=== PATIENT | male | born 1975 | race Two or more races ===

== ENCOUNTER → 2019-06-08 | Outpatient (CLI) | payer OTHER ==
[2019-04-19 11:00] VITALS: BP 127/86
[~2019-06-08] MED LIST: AMOX1TAB61 PO; GLIM1TAB PO; METF500T11 PO; OXYC-325 PO; TAMS0.4C97 PO
--- NOTE | 2019-06-08 16:08 | KCIC ---
MRI Lumbar Spine without contrast History: Lumbar and sacral arthritis, low back pain, shooting pain, skin sensitivity since January Technique: Multiplanar, multi sequential noncontrast MR imaging was performed of the lumbar spine. Comparison: April 18, 2019 Findings: Lumbar vertebral body stature is unchanged, similar superior endplate concavity and Schmorl's node of S1. There is negligible anterior spondylolisthesis at L4-5 as seen previously. Intervertebral disc spaces are overall preserved. Conus terminates near T12. There is no significant marrow edema. There is again focus of increased T2 and T1 signal of the anterior L5 vertebral body about 1.3 cm. L1-L2: This level was not included on the axial images, spinal canal and neural foramina overall adequate. There is a focus of increased T2 and STIR signal of the left superior L1 vertebral body as seen previously about 0.7 cm, very faintly hyperintense on the T1 sequence. L2-L3: Spinal canal and neural foramina are adequate. There is mild buckling of the ligamentum flavum and facet degenerative change. There is small anterior annular tear as seen previously. L3-L4: There is again negligible disc osteophyte complex. There is minimal buckling of the ligamentum flavum. Spinal canal and neural foramina are overall adequate. L4-L5: There is again disc osteophyte complex and bulge/broad protrusion slightly indenting the ventral thecal sac. There is similar degree of mild to moderate narrowing the far left lateral recess with contact of the descending left L5 nerve root, minimal narrowing of the far right lateral recess. There is mild buckling of the ligamentum flavum. Neural foramina are overall adequate. L5-S1: There is very minimal disc osteophyte complex in the inferior distal right neural foramen and extraforaminal region, neural foramina not significantly narrowed. Spinal canal is adequate. Impression: 1. There is again narrowing of the far lateral recesses greater on the left at L4-5 with contact of the descending left L5 nerve root. There is no significant lumbar neural foramina compromise. 2. There is a similar focus of marrow signal abnormality of the left L1 vertebral body, small hemangioma considered most likely. There is a more typical appearing hemangioma anteriorly of L5. Electronically signed by: Simone Young MD (06/08/2019 4:05 PM) [id number]
== END | disposition home or self-care (01) ==
LOC: KCIC MRI 15:16
PROVIDERS: ATTEND Family Medicine
DX: M48.061 Spinal stenosis, lumbar region without neurogenic claudication (principal); M25.78 Osteophyte, vertebrae
CPT/HCPCS: 72148

== ENCOUNTER 2019-06-21 18:04 | Emergency (ER) | payer OTHER ==
[~2019-06-21] VITALS: Ht 177.8 cm; Wt 80.4 kg
[2019-06-21 20:00] VITALS: BP 148/79
[2019-06-21] MEDS ORDERED: fentaNYL PF VIAL 100 MCG/2 ML VIAL IM STA (20:06)
--- NOTE | 2019-06-21 20:20 | PHYS DOC ---
Past Medical History Past Medical History: Diabetes-Type II Additional Past Medical Histor: ENLARGED PROSTATE (JENNY TITUS APRN) Past Surgical History: No Surgical History (JENNY TITUS APRN) Alcohol Use: Rarely (JENNY TITUS APRN) Attending Signature I have participated in the care of this patient and I have reviewed and agree with all pertinent clinical information above including history, exam, and recommendations. (MAMADOU AGUILLON MD) Adult General Chief Complaint Chief Complaint: BACK PAIN - NO INJURY HPI HPI Patient is a 44 year old male who presents with back pain has been ongoing since December. Patient states his back pains been worsening is having sciatica pain going down both legs. The patient has an appointment with Dr. Reeves but has not yet seen him. The patient also has been seen his primary care doctor Dr. Keen regarding this complaint. He is tried Flexeril, gabapentin, and has been using Percocet. States he is out of the Percocet. Complete ROS were reviewed and found to be within normal limits, except as documented in the HPI (JENNY TITUS APRN) Current Medications Current Medications Current Medications Medications (Trade) Dose Ordered Sig/Chana Start Time Stop Time Status Last Admin Dose Admin Fentanyl Citrate (Fentanyl 2ml Vial) 75 mcg 1X STAT 06/21/19 20:06 06/21/19 20:07 DC 06/21/19 20:16 75 MCG (MAMADOU AGUILLON MD) Allergies Allergies Allergies Coded Allergies Type Severity Reaction Last Updated Verified No Known Drug Allergies 04/13/19 No (MAMADOU AGUILLON MD) Physical Exam Physical Exam Constitutional: Well developed, well nourished, no acute distress, non-toxic appearance. [] HENT: Normocephalic, atraumatic, bilateral external ears normal, oropharynx moist, no oral exudates, nose normal. [] Eyes: PERRLA, EOMI, conjunctiva normal, no discharge. [] Neck: Normal range of motion, no tenderness, supple, no stridor. [] Cardiovascular:Heart rate regular rhythm, no murmur [] Lungs & Thorax: Bilateral breath sounds clear to auscultation [] Skin: Warm, dry, no erythema, no rash. [] Back: C, T, and L tenderness, left sided muscle tenderness. Extremities: No tenderness, no cyanosis, no clubbing, ROM intact, no edema. [] Neurologic: Alert and oriented X 3, normal motor function, normal sensory funct ion, no focal deficits noted. [] Psychologic: Affect normal, judgement normal, mood normal. [] (JENNY TITUS APRN) Current Patient Data Vital Signs Vital Signs Date Time Temp Pulse Resp B/P (MAP) Pulse Ox O2 Delivery O2 Flow Rate FiO2 06/21/19 20:16 98 06/21/19 20:00 101 18 148/79 (102) Room Air 06/21/19 18:53 98.2 98.2 (MAMADOU AGUILLON MD) EKG EKG [] (JENNY TITUS APRN) Radiology/Procedures Radiology/Procedures [] (JENNY TITUS APRN) Course & Med Decision Making Course & Med Decision Making Pertinent Labs and Imaging studies reviewed. (See chart for details) Discussed with patient that he needs to see Neurosurgery and follow up with [facility] doctor. Because his primary care doctor has been giving pain medication. I don't feel comfortable giving a script for it. He needs to see his primary care provider. (JENNY TITUS APRN) Dragon Disclaimer Dragon Disclaimer This electronic medical record was generated, in whole or in part, using a voice recognition dictation system. (JENNY TITUS APRN) Departure Departure Impression: Primary Impression: Back pain Disposition: HOME, SELF-CARE Condition: STABLE Referrals: JED KEEN MD (PCP) Patient Instructions: Back Pain, Adult Additional Instructions: Thank you for visiting [facility]. We appreciate you trusting us with your care. If any additional problems come up don't hesitate to return to visit us. Please follow up with your primary care provider so they can plan additional care if needed and know about the problem that you had. If symptoms worsen come back to the Emergency Department. Any concerning symptoms that start such as chest pain, shortness of air, weakness or numbness on one side of the body, running high fevers or any other concerning symptoms return to the ER. Problem Qualifiers Primary Impression: Back pain Back pain location: low back pain Chronicity: acute Back pain laterality: bilateral Sciatica presence: with sciatica Sciatica laterality: bilateral sciatica Qualified Codes: M54.42 - Lumbago with sciatica, left side; M54.41 - Lumbago with sciatica, right side JENNY TITUS APRN Jun 21, 2019 20:20 MAMADOU AGUILLON MD Jun 22, 2019 00:52
== END 2019-06-21 20:33 | disposition home or self-care (01) ==
LOC: ER 18:04
DX: M54.41 Lumbago with sciatica, right side (principal); M54.42 Lumbago with sciatica, left side; E11.9 Type 2 diabetes mellitus without complications; N40.0 Benign prostatic hyperplasia without lower urinary tract symptoms
CPT/HCPCS: 96372; 99283; J3010

== ENCOUNTER → 2019-07-23 | Outpatient (CLI) | payer OTHER ==
--- NOTE | 2019-07-23 17:09 | KCIC ---
MRI Cervical Spine Without Contrast History: Pain, neck pain and left arm weakness progressive since March Technique: Multiplanar, multi sequential noncontrast MR imaging was performed of the cervical spine. Comparison: None Findings: Cervical cord caliber is within normal limits without defined or expansile signal abnormality. Small 6 mm focus of marrow signal change hyperintense on T2 and STIR sequences of the T2 vertebral body is isointense on the T1 sequence. Cervical vertebral body stature and AP alignment are within normal limits. There is mild degenerative disc disease C6-7 and C7-T1, mild disc desiccation at C5-C6. C2-C3: Neural foramina and spinal canal are adequate. C3-C4: Spinal canal and the neural foramina are adequate. C4-C5: There is facet degenerative change greater on the right. Neural foramina and spinal canal are adequate. C5-C6: There is bilateral facet hypertrophic change. Spinal canal and neural foramina are adequate. C6-C7: There is posterior protrusion about 2 to 3 mm AP slightly indenting the ventral thecal sac greater in the right paracentral region. There is buckling of the ligamentum flavum. Central canal is borderline about 10 mm. There is minimal narrowing of the left neural foramen, right neural foramen adequate. C7-T1: There is facet degenerative change bilaterally. Neural foramina and spinal canal are adequate. Impression: 1. There is no significant cervical spinal stenosis, borderline narrowing at C6-7. There is minimal narrowing of the left C6-7 neural foramen. There is mild degenerative disc disease C6-7 and C7-T1. 2. Small focus of marrow signal change of the T2 vertebral body is nonspecific. Small atypical hemangioma is considered more likely than more aggressive marrow replacing lesion (metastatic disease or myeloma), especially no known or suspicion for malignancy. Electronically signed by: Simone Young MD (07/23/2019 5:06 PM) [id number]
== END | disposition home or self-care (01) ==
LOC: KCIC MRI 15:31
PROVIDERS: ATTEND Family Medicine
DX: M47.812 Spondylosis without myelopathy or radiculopathy, cervical region (principal); M50.33 Other cervical disc degeneration, cervicothoracic region; M50.323 Other cervical disc degeneration at C6-C7 level; M50.223 Other cervical disc displacement at C6-C7 level; M48.02 Spinal stenosis, cervical region; M89.38 Hypertrophy of bone, other site
CPT/HCPCS: 72141

== ENCOUNTER → 2019-08-10 | Outpatient (CLI) | payer OTHER ==
[~2019-08-10] MED LIST changes: +HYDR-2769 PO
--- NOTE | 2019-08-10 09:54 | KCIC ---
EXAMINATION: Magnetic resonance imaging (MRI) of the thoracic spine without contrast 08/10/2019 8:45 AM HISTORY: Low back pain with unexplained numbness in the torso and extremities. TECHNIQUE: Multiplanar multi-weighted MRI of the thoracic spine was performed without intravenous contrast. Contrast information: None administered. COMPARISON: None available. FINDINGS: The alignment of the thoracic spine is normal. Vertebral bodies demonstrate normal signal intensity on all sequences. There are no compression fractures. The conus medullaris terminates at the level of T12-L1. The distal spinal cord signal intensity is normal. Mild disc desiccation at all levels of the thoracic spine, sparing T11-T12. There are no annular fissures identified. Limited views of the thorax and abdomen show no soft tissue abnormality. The aorta is normal. T2-T3: There is mild disc bulge. No significant facet arthropathy. No neuroforaminal or spinal canal stenosis. T7-T8: There is a mild circumferential disc bulge. There is mild facet arthropathy. No neuroforaminal or spinal canal stenosis. T8-T9: There is a disc bulge with right central disc protrusion. No significant facet arthropathy. No neuroforaminal or spinal canal stenosis. T9-T10: Mild disc bulge. No neuroforaminal or spinal canal stenosis. IMPRESSION: No significant disc herniation, neuroforaminal or spinal canal stenosis. Electronically signed by: Aliya Gilman MD (08/10/2019 9:51 AM) [id number]
== END | disposition home or self-care (01) ==
LOC: KCIC MRI 08:29
PROVIDERS: ATTEND Family Medicine
DX: M51.24 Other intervertebral disc displacement, thoracic region (principal); M12.88 Other specific arthropathies, not elsewhere classified, other specified site
CPT/HCPCS: 72146

== ENCOUNTER → 2019-08-14 | Outpatient (CLI) | payer OTHER ==
--- NOTE | 2019-08-14 14:49 | PAIN ---
DATE OF SERVICE: 08/14/2019 INITIAL CONSULTATION FOR PAIN CLINIC CHIEF COMPLAINT: Low back and bilateral lower extremity pain. SECONDARY COMPLAINT: Neck and bilateral upper extremity pain. HISTORY OF PRESENT ILLNESS: This is a 44-year-old male who presents with history of pain since 12/2018, not any specific injury or action he is aware of, but is gradually increasing pain, base of the neck, bilateral upper extremities, mostly in the mid low back with radiation to posterior gluteus, posterolateral thigh, lateral anterior thigh, anterior medial thighs, left greater than right, both the upper and lower extremities. The patient reports it is becoming more constant, sharp, described as shooting and stinging into the upper extremities, posterior deltoid, posterior upper arms, into the forearms anteriorly and posteriorly with tingling, numbness in the hand with some weakness of the left hand with lifting items. The patient reports the low back is likewise very tender with radiating pain across the low back and the posterior gluteus, lateral thighs, anterior thighs, especially medial thighs, medial lower legs, left greater than right and into the feet with numbness and tingling as well. The patient describes it as radiating, aching, changes during the day, worse with activity, standing, walking, changing positions, better with sitting or lying down, does awaken him from sleep about 3 times a night. The patient reports it does not affect his bowel or bladder control, but does affect his ability to walk. He is not using any assistive devices. The patient has had therapies in the past and stretching and strengthening exercises, but no formal physical therapy currently. He is still doing some stretching and strengthening exercises on his own as instructed with his primary physician. The patient is taking hydrocodone, both 5 mg and 10 mg, the 10 mg does decrease the pain where the others did not. He is taking gabapentin, which has not been helpful and Flexeril, which helps only mildly. The patient has been taking [id number] Motrin, Advil as well without significant decrease in pain. The patient did have MRI scan both cervical and lumbar spines, lumbar spine showing narrowing of the far lateral recesses greater on the left at L4-L5 with contact to descending left L5 nerve root, cervical spine shows degenerative changes throughout the middle and lower cervical distribution with narrowing at C6-C7, minimal narrowing on the left at C6-C7 and mild degenerative disk disease at C6-C7 and C7-T1. PAST MEDICAL HISTORY: Significant for type 2 diabetes diagnosed in 03/2019, diverticulosis, history of kidney infections, degenerative joint disease in peripheral joints. PAST SURGICAL HISTORY: No previous surgery. CURRENT MEDICATIONS: Include hydrocodone, glimepiride, metformin and tamsulosin. ALLERGIES: The patient has no known drug allergies. FAMILY HISTORY: Significant for diabetes and heart disease. SOCIAL HISTORY: The patient drinks alcohol about 2-3 times a year, very rarely, does not smoke, does not use any illegal, illicit or recreational drugs. He is single, lives locally in [place], [place]. 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 REVIEW OF SYSTEMS: The patient's review of systems is positive for those items mentioned in history of present illness. All systems reviewed and otherwise negative. It is complete, full and well documented on the patient's chart. PHYSICAL EXAMINATION: VITAL SIGNS: The patient's blood pressure is 132/90, pulse 124, respirations 16, temperature 98.1 degrees Fahrenheit, height is 5 feet 10 inches, weight is 180 pounds. GENERAL: The patient is awake, alert, oriented, appropriate, very pleasant demeanor. HEENT: Head shows normocephalic, atraumatic. Extraocular movements are intact and symmetrical. Oral cavity: Mucous membranes moist and pink. Dentition is intact. NECK: Shows anterior throat supple without palpable lymphadenopathy noted. Swallow reflex symmetrical. CHEST: Shows normal on inspection. Breath sounds are clear bilaterally. HEART: Shows S1, S2 clear. No murmurs auscultated. ABDOMEN: Soft, nontender, nondistended. No palpable organomegaly is noted. No rebound or guarding demonstrated. BACK: Shows spine grossly in the midline. Normal appearing thoracic kyphosis and cervical lordotic curvature as well as lumbar lordotic curvature. Cervical paraspinous muscle shows symmetrical on inspection, with palpation some mild tenderness in the inferior aspect of the cervical paraspinous musculature, slightly more on the left than the right, but present bilaterally without significant atrophy, hypertrophy without radiation. The patient does show good rotational motion of cervical spine, both laterally as well as extension and flexion without significant difficulty. The patient's low back shows lumbar paraspinous muscle shows symmetrical with normal lordotic curvature with palpation some moderate tenderness in the middle and lower distribution of paraspinous muscles diffusely bilaterally without radiation, without trigger points. The patient shows no tenderness over the sacrum or sacroiliac regions or the spinous processes. Good rotational motion both laterally greater than 10 degrees right and left as well as extension greater than 10 degrees, forward flexion 45 degrees without significant increase in pain. EXTREMITIES: The patient's extremities show upper extremity deep tendon reflexes 2+ in the biceps and triceps tendons. Motor exam is strong with opticianry teacher strength rated at 5/5 as is biceps and triceps flexion. Peripheral pulses are 2+ radial. No peripheral edema is noted. Lower extremities show deep tendon reflexes at 2+ patellar, 1+ tendo-calcaneus tendons, are symmetrical. Motor exam is approximately 4 on a scale of 5 on the left, 5/5 on the right. Peripheral pulses are 1+ posterior tibia. No peripheral edema is noted. Lower extremities are warm and dry to touch, equal in color and appearance. Straight leg raise noted to be mildly positive on the left at about 35-40 degrees left, right side is negative. This is decreased with knee flexion on the left side. Gaenslen's and Pradeep's maneuvers are negative bilaterally. The patient is able to stand, stand on his toes without significant difficulty. No loss of balance, walks with a normal appearing gait for short distance in the office today, not using any assistive devices to ambulate. SKIN: Shows warm and dry, good turgor. No edema. No sores, rashes or bruising throughout. IMPRESSION: 1. This is a 44-year-old male with approximate 7- to 8-month history of pain, both low back, bilateral lower extremities, left greater than right in a radicular fashion at L4-L5 dermatomal distribution on the left side. 2. Cervical radiculopathy, again worse on the left than the right, but present bilaterally in the C6-C7 dermatomal distribution. 3. Diabetes. 4. History of diverticulosis. PLAN: Options were discussed with the patient including conservative medical managements, physical therapies and interventional techniques as he is doing stretching exercises on his own, doing some stretches from his primary care physician as instructed him to do as well as medication management. He has tried without significant decrease in pain with either of these modalities. He would like to try interventional techniques. We discussed a lumbar epidural steroid injection using description as well as anatomical models and his low back and legs is his primary concern with the neck and upper extremities being secondary. We will preauthorize the patient for lumbar epidural steroid injection. Once approval is obtained, we will have the patient return for lumbar epidural steroid injection, translaminar approach at the L4-L5 level for his clinical left L4-L5 radiculopathy. The patient was given Medrol Dosepak in the meantime. The patient was cautioned as elevated blood sugars with the medication as well as side effects other than the elevated glucose. The patient will return to clinic in approximately 1 week. We will plan on lumbar epidural steroid injection at that time. EUGENIO REAL MD DR: GENEVIEVE/diane JOB#: [id number] / [id number] JED Ornelas MD
== END | disposition home or self-care (01) ==
LOC: PNCL 08:52
PROVIDERS: ATTEND Anesthesiology
DX: M54.5 Low back pain (principal); M79.604 Pain in right leg; M79.605 Pain in left leg; E11.9 Type 2 diabetes mellitus without complications; M19.90 Unspecified osteoarthritis, unspecified site; M54.12 Radiculopathy, cervical region; Z87.19 Personal history of other diseases of the digestive system
CPT/HCPCS: G0463

== ENCOUNTER → 2019-08-27 | Outpatient (CLI) | payer OTHER ==
[~2019-08-27] MED LIST changes: +IOHEXOL 180 MG/ML 10 ML VIAL. ONE; +methylPREDNISolone ACETATE 40 MG/ML VIAL. ONE; +methylPREDNISolone ACETATE 80 MG/ML VIAL. ONE
--- NOTE | 2019-08-27 17:13 | PAIN ---
DATE OF SERVICE: 08/27/2019 PROGRESS NOTE FOR PAIN CLINIC DIAGNOSES: 1. Lumbar radiculopathy with lumbar degenerative disk disease. 2. Cervical radiculopathy with cervical degenerative disk disease. HISTORY OF PRESENT ILLNESS: The patient is a 44-year-old male who returns for followup status post initial evaluation and preauthorization for lumbar epidural steroid injection. The patient has obtained that now and would like to proceed. The patient still reports pain in the low back and into the posterior gluteus, lateral thighs, anterior thighs, more on the left than the right, but present bilaterally as it was previously. The patient reports no new motor or sensory deficits. We did try Medrol Dosepak after his last visit and he reports it helped only very slight amount. The patient reports the pain is now aching, sharp, shooting in the legs, again worse on the left than the right and tingling, radiating, becoming more severe and constant with activity. No new motor or sensory deficits, no new bowel or bladder incontinence or other complaints. The patient rates his pain as a 9 on a scale of 10 at its worst over the past week, 8 on average, 6 at its least and is a 6 today. The patient reports still better with sitting or lying down, but does awaken him from sleep about once at night. PHYSICAL EXAMINATION: VITAL SIGNS: The patient's blood pressure 143/103, pulse 101, respirations 16, temperature 98.5 degrees Fahrenheit, weight is 177 pounds. GENERAL: The patient is awake, alert, oriented, appropriate, very pleasant demeanor. HEENT: Shows normocephalic, atraumatic. Extraocular movements are intact and symmetrical. Oral cavity: Mucous membranes moist and pink. Dentition is intact. NECK: Shows anterior throat supple without palpable lymphadenopathy noted. Swallow reflex symmetrical. CHEST: Shows normal on inspection. Breath sounds are clear bilaterally. HEART: Shows S1, S2 clear. No murmurs auscultated. ABDOMEN: Soft, nontender, nondistended. No palpable organomegaly is noted. No rebound or guarding demonstrated. BACK: Shows spine grossly in the midline. Normal appearing thoracic kyphosis and lumbar lordotic curvature. Lumbar paraspinous muscle shows symmetrical on inspection, on palpation shows some moderate tenderness diffusely, but only diffusely without significant radiation bilaterally. The patient shows good rotational motion of lumbar spine, both laterally greater than 10 degrees right and left as well as extension greater than 10 degrees, forward flexion 45 degrees without significant pain reported. EXTREMITIES: The patient's lower extremities show deep tendon reflexes 2+ in the patellar and 1+ tendo calcaneus tendons. Motor exam is strong with approximately 4 on a scale of 5 on the left with dorsiflexion and extension, 5/5 on the right. Peripheral pulses are 1+ posterior tibia. No peripheral edema is noted bilaterally. Options were discussed with the patient. The patient's old chart was reviewed as his current medication regimen updated. Current review of systems updated today as well. We will proceed with a lumbar epidural steroid injection today with fluoroscopic guidance. Risks were again discussed including, but not limited to bleeding, infection, possibility of epidural hematoma, subsequent neurological compromise, dural puncture, headaches, spinal cord and/or nerve damage, side effects of steroid medication and poor results regarding pain control. The patient understands and wished to proceed. The patient will return to clinic in approximately 2 weeks for followup, was counseled on return appointment, activity level and side effects to be aware of. DIAGNOSES: Lumbar radiculopathy with lumbar degenerative disk disease. PROCEDURE: Lumbar epidural steroid injection, translaminar approach at L4-L5 level using C-arm fluoroscopic guidance under sterile prep and drape using local anesthetic. MEDICATION INJECTED: A total of 120 mg Depo-Medrol plus 10 mL of preservative-free normal saline and 2 mL of contrast. CONDITION AT DISCHARGE: Stable. The patient tolerated the procedure well, had no complications. EUGENIO REAL MD DR: GENEVIEVE/diane JOB#: [id number] / [id number]
== END | disposition home or self-care (01) ==
LOC: PNCL 14:44
PROVIDERS: ATTEND Anesthesiology
DX: M51.16 Intervertebral disc disorders with radiculopathy, lumbar region (principal); M50.10 Cervical disc disorder with radiculopathy, unspecified cervical region
CPT/HCPCS: 62323; J1030; J1040; Q9965

== ENCOUNTER → 2019-09-10 | Outpatient (CLI) | payer OTHER ==
[~2019-09-10] MED LIST changes: -IOHEXOL 180 MG/ML 10 ML VIAL. ONE; -methylPREDNISolone ACETATE 40 MG/ML VIAL. ONE; -methylPREDNISolone ACETATE 80 MG/ML VIAL. ONE
--- NOTE | 2019-09-10 19:34 | PAIN ---
DATE OF SERVICE: 09/10/2019 DIAGNOSES: 1. Lumbar radiculopathy with degenerative disk disease. 2. Cervical radiculopathy with cervical degenerative disk disease. HISTORY OF PRESENT ILLNESS: The patient is a 44-year-old male who returns for followup status post lumbar epidural steroid injection x 1. The patient reports about 75% improvement initially, now about 50% overall with much better pain relief on the left side than the right. The patient reports that right side is now more painful, in his low back, but pain will radiate into the bilateral low back into the lower extremities, again into the left and right lower extremities, but more noticeable on the right side, now is his left side, doing much better. The patient reports about 75% on the left, 50% on the right, but still significant pain. The patient has increased his activity with greater distance walking, doing household work activities with much greater ease and comfort, sleeping better at night, does not awaken him from sleep. Reports traveling with greater ease and comfort, getting out of the car as well as climbing stairs with much greater ease. The patient reports no new motor or sensory deficits, rates his pain as a 9 on a scale of 10 at its worst over the past week, 8 on average, 7 at its least and is a 7 today. The patient reports has tingling, stabbing in the low back radiating with some burning and shooting pain, which can be dull and tight in the legs again, noticeable bilaterally in the right and left side, much more improved. The patient reports no new motor or sensory deficits, no bowel or bladder incontinence or other complaints. PHYSICAL EXAMINATION: VITAL SIGNS: The patient's blood pressure is 135/76, pulse 103, respirations 20, temperature 98.8 degrees Fahrenheit, height is 5 feet 10 inches, weight is 178 pounds. GENERAL: The patient is awake, alert, oriented, appropriate, very pleasant demeanor. HEENT: Normocephalic, atraumatic. Extraocular movements are intact and symmetrical. Oral cavity shows mucous membranes moist and pink. Dentition is intact. NECK: Shows anterior throat supple without palpable lymphadenopathy noted. Swallow reflex symmetrical. CHEST: Shows normal on inspection. Breath sounds are clear bilaterally. HEART: Shows S1, S2 clear. No murmurs auscultated. ABDOMEN: Soft, nontender, nondistended. No palpable organomegaly is noted. No rebound or guarding demonstrated. BACK: Shows spine grossly in the midline. Normal appearing thoracic kyphosis and some slight flattening of lumbar lordotic curvature. Lumbar paraspinous muscle shows symmetrical on inspection, with palpation shows very moderate tenderness in the superior aspect of the lumbar upper paraspinous musculature, less so in the middle and lower distribution without significant radiation, only very mild tenderness in the lower and middle distribution of the lumbar paraspinous muscles, which appears symmetrical, no evidence of atrophy or hypertrophy. Good rotational motion is demonstrated both laterally greater than 10 degrees right and left as well as extension greater than 10 degrees, forward flexion 45 degrees without significant pain reported. No tenderness over the spinous processes, sacrum or sacroiliac regions. EXTREMITIES: Lower extremities show deep tendon reflexes 2+ in the patellar and tendo calcaneus tendons are 1+. Motor exam is strong with 5/5 dorsiflexion, extension, quadriceps and hamstring flexion, symmetrical. Peripheral pulses are 1+ posterior tibia. No peripheral edema is noted bilaterally. Options were discussed with the patient. The patient's old chart was reviewed as his current medication regimen updated. Current review of systems updated today as well. We will preauthorize the patient for a second lumbar epidural steroid injection at L4-L5 level as he does still have clinical radiculopathy in the L4-L5 dermatomal distributions bilaterally, posterior lateral thighs, anterior thighs, medial thighs, again more noticeable on the left than the right at this time, but present bilaterally. After significant improvement after the first injection, we will plan on translaminar approach at the L4-L5 level for a second lumbar epidural steroid injection. In the meantime, the patient will continue with stretching and strengthening exercises, walking daily as tolerated and heat and massage therapies to the aforementioned musculature in the mid and low back as well. The patient will return to the clinic. We will plan on lumbar epidural steroid injection #2 at that time. EUGENIO REAL MD DR: GENEVIEVE/diane JOB#: [id number] / [id number]
== END | disposition home or self-care (01) ==
LOC: PNCL 13:40
PROVIDERS: ATTEND Anesthesiology
DX: M51.16 Intervertebral disc disorders with radiculopathy, lumbar region (principal); M50.10 Cervical disc disorder with radiculopathy, unspecified cervical region
CPT/HCPCS: G0463

== ENCOUNTER → 2019-09-24 | Outpatient (CLI) | payer OTHER ==
[~2019-09-24] MED LIST changes: +IOHEXOL 180 MG/ML 10 ML VIAL. ONE; +methylPREDNISolone ACETATE 40 MG/ML VIAL. ONE; +methylPREDNISolone ACETATE 80 MG/ML VIAL. ONE
--- NOTE | 2019-09-24 13:54 | PAIN ---
DATE OF SERVICE: 09/24/2019 PROGRESS NOTE FOR PAIN CLINIC DIAGNOSES: 1. Lumbar radiculopathy with lumbar degenerative disk disease. 2. Cervical radiculopathy with cervical degenerative disk disease. HISTORY OF PRESENT ILLNESS: The patient is a 44-year-old male who returns for followup status post lumbar epidural steroid injection x 1. The patient did very well with approximately 75% improvement in the low back and left greater than right lower extremity pain. The patient reports pain is returning now. We waited for preauthorization from his insurance provider. He has obtained that now and would like to proceed with a second injection today as the pains are returning in the low back and into the bilateral lower extremities, somewhat more equal now on the right and left lower extremities, but more worse on the left most times. The patient reports the pain is a 9 on a scale of 10 at its worst over the past week, 6 on average, 6 at its least and is a 6 today. The patient reports it is sharp and shooting, tingling, stabbing, on and off in intensity, worse with activity, walking and standing. The patient reports it flared up over the past 2-3 days, which is regular activity, but is still better with sitting or lying down, does not awaken him from sleep at night. The patient reports no new motor or sensory deficits, no new bowel or bladder incontinence or other complaints. PHYSICAL EXAMINATION: VITAL SIGNS: The patient's blood pressure is 128/96, pulse 116, respirations 16, temperature 98.8 degrees Fahrenheit, height is 5 feet 10 inches, and weight is 178 pounds. GENERAL: The patient is awake, alert, oriented, appropriate, very pleasant demeanor. HEENT: Shows normocephalic, atraumatic. Extraocular movements are intact and symmetrical. Oral cavity: Mucous membranes moist and pink. Dentition is intact. NECK: Shows anterior throat supple without palpable lymphadenopathy noted. Swallow reflex symmetrical. CHEST: Shows normal on inspection. Breath sounds are clear to auscultation bilaterally. HEART: Shows S1, S2 clear. No murmurs auscultated. ABDOMEN: Soft, nontender, nondistended. BACK: Shows spine grossly in the midline. Normal-appearing thoracic kyphosis and minor flattening of lumbar lordotic curvature. Lumbar paraspinous muscle shows symmetrical on inspection, on palpation shows some moderate tenderness diffusely bilaterally and diffusely without significant radiation. The patient has good rotational motion of lumbar spine, both laterally as well as extension and flexion without significant pain reported. EXTREMITIES: Lower extremities show deep tendon reflexes 2+ in the patellar and 1+ tendo-calcaneus tendons. Motor exam is strong with 4 on a scale of 5 on the left and 5/5 on the right dorsiflexion, extension, quadriceps and hamstring flexion. Peripheral pulses are 1+ posterior tibia. No peripheral edema is noted bilaterally. Options were discussed with the patient. The patient's old chart was reviewed as well as his current medication regimen updated. Current review of systems updated today as well. We will proceed with a second in the series of lumbar epidural steroid injection today with fluoroscopic guidance. Risks were again discussed including, but not limited to bleeding, infection, possibility of epidural hematoma, subsequent neurological compromise, dural puncture, headaches, spinal cord and/or nerve damage, side effects of steroid medication and poor results regarding pain control. The patient understands and wished to proceed. The patient will return to clinic in approximately 2 weeks for followup. He was counseled on return appointment, activity level and side effects to be aware of. DIAGNOSIS: Lumbar radiculopathy with lumbar degenerative disk disease. PROCEDURE: Lumbar epidural steroid injection, translaminar approach L4-L5 level using C-arm fluoroscopic guidance under sterile prep and drape using local anesthetic. MEDICATION INJECTED: A total of 120 mg Depo-Medrol plus 10 mL of preservative-free normal saline and 2 mL of contrast. CONDITION AT DISCHARGE: Stable. The patient tolerated procedure well, had no complications. EUGENIO REAL MD DR: GENEVIEVE/diane JOB#: [id number] / [id number]
== END ==
LOC: PNCL 12:58
PROVIDERS: ATTEND Anesthesiology
DX: M51.16 Intervertebral disc disorders with radiculopathy, lumbar region (principal); M50.10 Cervical disc disorder with radiculopathy, unspecified cervical region
CPT/HCPCS: 62323; J1030; J1040; Q9965